=== PATIENT | male | born 1980 | race Two or more races ===

== ENCOUNTER 2025-09-21 08:00 | Day surgery (SDC) | payer MEDICAID, SELFPAY ==
[2025-09-20 12:08] VITALS: BMI 30.9
[2025-09-20 13:30] LABS: Basophils # (Auto) 0.0 Thou/mm3 (0.0-0.2); Basophils % (Auto) 0 % (0-2.5); Eosinophils # (Auto) 0.1 Thou/mm3 (0.0-0.5); Eosinophils % (Auto) 2 % (0-10); Hematocrit 44.6 % (41.0-53.0); Hemoglobin 14.6 g/dL (13.5-16.0); Immature Granulocytes Auto 0.01 Thou/mm3 (0.00-0.00); Lymphocytes # (Auto) 1.9 Thou/mm3 (1.0-4.8); Lymphocytes % (Auto) 36 % (10-50); Mean Corpuscular HGB Conc 32.7 g/dl (31.0-37.0); Mean Corpuscular Hemoglobin 28.6 pg (25.0-35.0); Mean Corpuscular Volume 87 fL (80-100); Monocytes # (Auto) 0.4 Thou/mm3 (0.0-0.8); Monocytes % (Auto) 7 % (0-12); Neutrophils # (Auto) 2.8 Thou/mm3 (1.8-7.7); Neutrophils % (Auto) 54 % (37-80); Nucleated Red Blood Cell # 0.00 Thou/mm3 (0.00-0.00); Nucleated Red Blood Cell % 0 /100 WBC (0); Platelet Count 290 Thou/mm3 (140-440); RDW Standard Deviation 39.9 fL (35.1-43.9); Red Blood Count 5.11 Miln/mm3 (4.50-5.90); White Blood Count 5.2 Thou/mm3 (3.8-10.6)
[2025-09-20 13:35] LABS: INR 1.0 (0.9-1.3); Partial Thromboplastin Time 30.5 Seconds (22.0-36.0); Prothrombin Time 10.5 Seconds (9.0-12.2)
[2025-09-20 13:51] LABS: Alanine Aminotransferase 24 U/L (10-49); Albumin, Serum 5.0 gm/dL (3.5-5.0); Albumin/Globulin Ratio 1.7 (1.2-2.2); Alkaline Phosphatase 49 U/L (46-116); Anion Gap 10 (7-16); Aspartate Amino Transferase 24 U/L (0-34); BUN/Creatinine Ratio 13 Ratio (12-20); Bilirubin,Total 0.7 mg/dL (0.3-1.2); Blood Urea Nitrogen 13 mg/dL (9-23); Calcium 9.6 mg/dL (8.3-10.6); Calcium (Corrected) 9.6 mg/dL (8.5-10.1); Carbon Dioxide 26.7 mMol/L (20.0-31.0); Chloride 103 mMol/L (98-107); Creatinine (Component) 1.0 mg/dL (0.6-1.3); Estimated Creatinine Clearance 88.1 mL/min (>60); Globulin 2.9 gm/dL (2.3-3.5); Glucose 100 mg/dL (74-106); Osmolality,Calculated 279 (275-295); Potassium 4.2 mMol/L (3.4-5.1); Sodium 140 mMol/L (136-145); Total Protein 7.9 gm/dL (5.7-8.2); eGFR > 60 See Note
[2025-09-21 08:30] VITALS: BP 142/94; PULSE 71; RESP 17; TEMP 36.4; O2SAT 98; BMI 30.8
[2025-09-21 11:05] VITALS: BP 125/91; PULSE 62; RESP 18; TEMP 36.3; O2SAT 97
--- NOTE | 2025-09-21 11:05 | SUR.PHASEII ---
1105: Pt. AAOx4, vitals stable, breathing unlabored, no complaint of pain or nausea, dressing to scrotum CDI, no active bleed noted, report received from MD Dewitt and Leonard DAY.
[2025-09-21 11:10] VITALS: BP 123/96; PULSE 63; RESP 19; TEMP 36.3; O2SAT 98
[2025-09-21 11:15] VITALS: BP 132/86; PULSE 63; RESP 12; TEMP 36.3; O2SAT 98
[2025-09-21 11:20] VITALS: BP 125/86; PULSE 68; RESP 18; TEMP 36.2; O2SAT 97
--- NOTE | 2025-09-21 11:23 | PD.SUROPNT ---
Date of Procedure 09/21/25 Pre Op Diagnosis Elective sterilization Post Op Diagnosis Same Procedure Bilateral vasectomy Findings The patient was found to have normal vas on both sides Procedure Description Note the patient was brought to the operating room monitored anesthesia was given by Dr. Dewitt. Then the patient's external genitalia was washed with Betadine solution and draped in a sterile manner. Timeout was performed. Then I approached the right side of the scrotum and lifted up the vas between my index finger and thumb. Then injected local anesthesia consisting of 1% Xylocaine and sodium bicarbonate. I injected 2 cc over the vas and made a transverse incision with a 15 blade knife. Using a towel clamp I grasped the vas and then I dissected the vas to freed from surrounding tissues. It was confirmed that it is vas by palpating it. The right hide 3-0 silk ties on the vas and a small segment was resected measuring 1 cm in length. Divided and was coagulated with cautery using needlepoint. Then we buried the mass in different plane so that there not in close contact with the each other using a 3-0 chromic. The skin was closed with interrupted 3-0 chromic. Exactly similar operation was performed on the left side. The left vas also was removed and sent for the histopathological examination. Then I applied a dressing with some ointment and fluff and scrotal bandage. Patient tolerated procedure well. Anesthesia MAC Pathology / specimen Other (1. Right vas, #2 left vas) Estimated Blood Loss 10 Surgeon Jian Perez MD Surgical Staff Operation Date: 09/21/25 10:15 Case Staff Anesthesiologist: Reid Dewitt
[2025-09-21 11:35] VITALS: BP 135/85; PULSE 61; RESP 14; TEMP 36.3; O2SAT 97
--- NOTE | 2025-09-21 11:45 | SUR.PHASEII ---
1145: Pt. AAOx4, vital stable, breathing unlabored, no complaint of pain or nausea, dressing to scrotum CDI, no active bleed noted, pt. tolerated sips of water well, pt. ambulated to wheelchair with steady gait and no assist, no complications. Gave discharge instructions to the pt. and his ride, both verbalized understanding and had no further questions. Pt. left with all personal belongings.
== END 2025-09-21 11:45 | disposition home or self-care (01) ==
PROVIDERS: Referring Provider Surgery; Visit Provider Surgery
PROC: (CPT 55250; principal; 2025-09-21 10:00)
DX: Z30.2 Encounter for sterilization (principal)
CPT/HCPCS: 55250; 36415; 80053; 85025; 85610; 85730; A4217; A4649; J1200; J2250; J2704; J3010; L8330; A9270